=== PATIENT | female | born 1950 | race Caucasian/White ===

== ENCOUNTER 2017-11-02 21:11 | Emergency (ER) | payer MEDICARE ==
--- NOTE | 2017-11-02 21:21 | UC ---
Dizzy HPI HPI Summary: Per supervisor winter "WOKE THIS MORNING FEELING DIZZY, FELT FINE MOST OF THE DAY UNTIL THIS NUNO. DIZZINESS RETURNED-WORSE THAN IN THE MORNING, NAUSEA , VOMITED ONCE. DENIES HEADACHE, SPEACH IS CLEAR,NO CHEST PAIN OR PRESSURE. NO PAIN IN ARMS OR BACK. DENIES NUMBNESS OR TINGLING OF ARMS OR LEGS" -she was driven here w/ her BF Jay. She felt dizzy when she 1st got up this morning. Sx got better as she went about her day until she laid down tonight. sx started soon after that again. Got very dizzy w/ room spinning and nausea. denies cp/sob. no slurred speech. no w/n/t. No MENDEZ . + allergies. uses xyzal and supposed to be using steroid NS but not doing so. - History Of Current Complaint Stated Complaint: DIZZY, CLAMMY, NAUSEATED Time Seen by Provider: 11/02/17 21:20 - Allergies/Home Medications Allergies/Adverse Reactions: Allergies Allergy/AdvReac Type Severity Reaction Status Date / Time iodine Allergy Unknown asthma Verified 11/02/17 21:15 attack Home Medications: Home Medications Atorvastatin* [Lipitor 10 MG*] 10 mg PO DAILY 11/02/17 [History Confirmed ] Budesonide/Formote 160/4.5(NF) [Symbicort 160/4.5 (NF)] 2 puff INH BID 11/02/17 [History Confirmed 11/02/17] Hydrochlorothiazide TAB* [Hydrodiuril TAB*] 25 mg PO DAILY 11/02/17 [History Confirmed 11/02/17] Levocetirizine Dihydrochloride [Xyzal] 5 mg PO 11/02/17 [History] PARoxetine HCL TAB* [Paxil TAB*] 10 mg PO DAILY 11/02/17 [History Confirmed 05/14] dilTIAZem HCl [Cardizem 120 MG LA] 180 mg PO DAILY 11/02/17 [History Confirmed 11/02/17] PMH/Surg Hx/FS Hx/Imm Hx Previously Healthy: Yes Endocrine History: Dyslipidemia Cardiovascular History: Hypertension Psychological History: Anxiety - Surgical History Surgery Procedure, Year, and Place: DARNELL BREAST REDUCTION 2001 - Family History Known Family History: Positive: Hypertension Review of Systems Constitutional: Negative Skin: Negative Eyes: Negative ENT: Negative Respiratory: Negative Cardiovascular: Negative Gastrointestinal: Nausea Genitourinary: Negative Motor: Negative Neurovascular: Negative Musculoskeletal: Negative Neurological: Other - dizziness Psychological: Negative Is Patient Immunocompromised?: No All Other Systems Reviewed And Are Negative: Yes Physical Exam Triage Information Reviewed: Yes Appearance: Ill-Appearing - in wheelchair in moderate distress. Vital Signs Reviewed: Yes Eye Exam: Normal ENT: Positive: Pharynx normal, TMs normal Neck exam: Normal Neck: Positive: Supple, Nontender, No Lymphadenopathy Respiratory Exam: Normal Respiratory: Positive: Lungs clear Cardiovascular: Positive: RRR, No Murmur, Pulses Normal Abdominal Exam: Normal Abdomen Description: Positive: Soft Musculoskeletal Exam: Normal Neurological: Positive: Other: - [place]-Hallpike + b/l with left > right. sigbnificant response w/ nause and dizziness in all positions. + left lateral nystagmus. no vertical nystagmus. no bruits. no slurred speech. Psychological Exam: Normal Skin Exam: Normal Dizzy Course/Dx - Course Course Of Treatment: Vertigo + kong hallpike. adv to sleep sitting up/45 degree recliner with head still. -adv f/u with pcp on Sunday. -zofran 8 mgs given here for nausea. and rx to take home. -adv will need MRI/MRA in 2 wks if sx not imporved. adv to go to ER via 911 with severe MENDEZ. -they understood me well and are very agreeable with this plan. - Differential Dx/Diagnosis Differential Diagnosis/HQI/PQRI: Benign Paroxysmal Positional Vertigo, CVA, Transient Ischemic Attack Provider Diagnoses: Vertigo Discharge - Discharge Plan Condition: Stable Disposition: HOME Prescriptions: Ondansetron ODT TAB* [Zofran 4 MG Odt TAB*] 4 mg PO Q6H PRN 5 Days #15 tab.odt PRN Reason: Nausea Patient Education Materials: Vertigo (ED) Referrals: Ishaan Rodriguez MD [Primary Care Provider] - Additional Instructions: -Recommend MRI/MRA in 2 wks if symptoms persist. -Consideration may be given to PT and/or neurology consult. -be very cautious not to fall. We discussed slow position changes and support especially when first standing. -Absolutely no driving or operating machinery until symptoms completely resolve. -Go to ER via 911 immediately with severe MENDEZ, slurred speech, numbing, tingling or one sided weakness.
[2017-11-02] MEDS ORDERED: Ondansetron ODT TAB* 4 MG PO ONE (21:31)
[2017-11-02 21:41] VITALS: BP 171/79
== END 2017-11-02 22:14 | disposition home or self-care (01) ==
LOC: UCCORT 21:11
DX: R42 Dizziness and giddiness (principal); E78.5 Hyperlipidemia, unspecified; I10 Essential (primary) hypertension; F41.9 Anxiety disorder, unspecified
CPT/HCPCS: 93005; 99212; A9270-GY; G0463

== ENCOUNTER 2019-10-04 13:15 | Emergency (ER) | payer MEDICARE ==
[2019-10-04 14:06] VITALS: BP 151/65
--- NOTE | 2019-10-04 14:23 | UC ---
Respiratory Complaint HPI - HPI Summary HPI Summary: 69-year-old woman comes in with a chief complaint of arthritis and asthma symptoms for one week. Patient reports she has chest congestion that's making her asthma worse. Her chest congestion is worse at night when she is laying down. Denies any pedal edema. She does report sputum production. She has been using her albuterol that does help briefly with the symptoms. - History of Current Complaint Chief Complaint: UCRespiratory Stated Complaint: HX ASTHMA WHEEZY COUGH CONGESTION Time Seen by Provider: 10/04/19 14:06 Pain Intensity: 0 - Allergies/Home Medications Allergies/Adverse Reactions: Allergies Allergy/AdvReac Type Severity Reaction Status Date / Time iodine Allergy Unknown asthma Verified 10/04/19 13:55 attack Home Medications: Home Medications Albuterol HFA INHALER* [Ventolin HFA Inhaler*] 2 puff INH Q4H PRN 10/04/19 [ History Confirmed 10/04/19] Cetirizine* [ZyrTEC 10 MG TAB*] 10 mg PO DAILY 10/04/19 [History Confirmed 10/04] PMH/Surg Hx/FS Hx/Imm Hx Previously Healthy: Yes Endocrine History: Dyslipidemia Cardiovascular History: Hypertension Respiratory History: Asthma - Surgical History Surgical History: Yes Surgery Procedure, Year, and Place: DARNELL BREAST REDUCTION 2001 - Family History Known Family History: Positive: Hypertension - Social History Alcohol Use: Rare Substance Use Type: None Smoking Status (MU): Former Smoker Type: Cigarettes When Did the Patient Quit Smoking/Using Tobacco: 1979 Review of Systems All Other Systems Reviewed And Are Negative: Yes Constitutional: Positive: Other - SEE HPI Skin: Positive: Negative Eyes: Positive: Negative ENT: Positive: Nasal Discharge Respiratory: Positive: Shortness Of Breath, Cough, Other - SEE HPI Cardiovascular: Positive: Negative Gastrointestinal: Positive: Negative Motor: Positive: Negative Neurovascular: Positive: Negative Musculoskeletal: Positive: Negative Neurological: Positive: Negative Psychological: Positive: Negative Is Patient Immunocompromised?: No Physical Exam Triage Information Reviewed: Yes Appearance: No Pain Distress, Well-Nourished, Ill-Appearing - MILD Vital Signs: Initial Vital Signs Temp 97.4 F 10/04/19 13:58 Pulse 81 10/04/19 13:58 Resp 19 10/04/19 13:58 BP 151/65 10/04/19 13:58 Pulse Ox 97 10/04/19 13:58 Vital Signs Reviewed: Yes Eye Exam: Normal Eyes: Positive: Conjunctiva Clear ENT: Positive: Pharynx normal, Nasal congestion, TMs normal Neck: Positive: Supple Respiratory: Positive: No respiratory distress, Rhonchi Cardiovascular: Positive: RRR Musculoskeletal: Positive: Strength Intact, ROM Intact, No Edema - No calf tenderness to palpation Neurological: Positive: Alert, Muscle Tone Normal Psychological: Positive: Normal Response To Family, Age Appropriate Behavior Skin Exam: Normal Respiratory Course/Dx - Course Course Of Treatment: DISCUSSED VIRAL VERSES BACTERIAL INFECTIONS AND THE ROLE OF ANTIBIOTICS. THE PATIENT PREFERS TO BE ON ANTIBIOTICS AT THIS TIME. Patient declined steroids at this time. We discussed whether or not to get a chest x-ray today plan is to treat and if not improved consider chest x-ray at that time. Discussed with the patient that if she gets worse she needs to get reevaluated in the emergency department. - Differential Dx/Diagnosis Provider Diagnosis: Bronchitis, Asthma Discharge ED - Sign-Out/Discharge Documenting (check all that apply): Patient Departure All imaging exams completed and their final reports reviewed: No Studies - Discharge Plan Condition: Stable Disposition: HOME Patient Education Materials: Asthma (ED), Acute Bronchitis (ED) Referrals: Ishaan Rodriguez MD [Primary Care Provider] - Additional Instructions: FOLLOW UP WITH YOUR DOCTOR. GET REEVALUATED SOONER IF NOT IMPROVED. GO TO THE EMERGENCY DEPARTMENT IF WORSE; SHORTNESS OF BREATH, FEVER, YOU FEEL ILL OR ANY QUESTIONS OR CONCERNS. - Billing Disposition and Condition Condition: STABLE Disposition: Home
== END 2019-10-04 14:51 | disposition home or self-care (01) ==
LOC: UCCORT 13:15
DX: J45.909 Unspecified asthma, uncomplicated (principal); I10 Essential (primary) hypertension; Z87.891 Personal history of nicotine dependence; Z79.899 Other long term (current) drug therapy; Z91.09 Other allergy status, other than to drugs and biological substances
CPT/HCPCS: 99212; G0463